=== PATIENT | female | born 1990 | race Caucasian/White ===

== ENCOUNTER 2021-01-31 06:21 | Inpatient (IN) | payer MEDICAID ==
[2021-01-31] VITALS (71 sets, daily range): BP systolic 90–144; BP diastolic 49–89
[~2021-01-31] VITALS: Ht 162.6 cm; Wt 92.2 kg
--- NOTE | 2021-01-31 06:30 | History & Physical-OB ---
OB - Chief Complaint & HPI Date/Time Date of Admission: Date of Admission: Jan 31, 2021 at 06:21 Date seen by a Provider: Jan 31, 2021 Time Seen by a Provider: 06:35 Chief Complaint/History OB-Reason for Admission/Chief: Induction of Labor Hx : 2 Hx Para: 1 Expected Date of Delivery: Jan 25, 2021 Gestational Age in Weeks: 40 Gestational Age in Days: 6 Indication for induction: post dates Admission Nurse Assessment Rev: Yes History of Labs GBS negative Allergies and Home Medications Patient Home Medication List Home Medication List Reviewed: Yes OB - History Hx of Present Care: Yes Ultrasounds: Normal mid trimester US Obstetrical Complications: None Medical Complications: None Patient Past Medical History no chronic medical problems OB - Admission Exam Physical Exam HEENT: Moist Membranes Heart: Rhythm Normal Lungs: Clear Abdomen: Gravid Extremities: Normal Cervical Dilatation: 1cm Effacement: 50% Station: -3 Membranes: Intact Heart Rate: 140's Intensity: Mild Titus Scoring Tool (Modified) Dilation (cm): 1-2cm (1) Effacement (%): 51-79% (2) Descent/Station: -3 (0) Cervix Consistency: Medium(1) Cervix Position: Posterior (0) Add 1 point for: Each previous vaginal delivery (1) Titus Score: 5 OB - Assessment/Plan/Diagnosis Assessment Assessment: induction of labor Admission Dx IUP at 40w6d gestation Admission Status: Inpatient Order (span 2 midnights) Reason for Inpatient Admission: induction of labor Plan Plan: Induction Induction Method: BERENICE VARELA MD Jan 31, 2021 06:30
[2021-01-31] MEDS ORDERED: D5 LR IV SOLUTION 1,000 ML IV ONE (06:41)
[2021-01-31] MEDS ORDERED: OXYTOCIN PRE-MIX DRIP 500 ML IV SCH ×2 (06:45→21:30)
[2021-01-31 07:05] LABS: BASOPHILS % (AUTO) 0 % (0-10); EOSINOPHILS # (AUTO) 0.1 10^3/uL (0.0-0.3); EOSINOPHILS % (AUTO) 1 % (0-10); HEMATOCRIT 32 % (35-52); HEMOGLOBIN 9.7 g/dL (11.5-16.0); LYMPHOCYTES # (AUTO) 2.3 10^3/uL (1.0-4.0); LYMPHOCYTES % (AUTO) 28 % (12-44); MEAN CORPUSCULAR HEMOGLOBIN 25 pg (25-34); MEAN CORPUSCULAR HGB CONC 31 g/dL (32-36); MEAN CORPUSCULAR VOLUME 80 fL (80-99); MONOCYTES # (AUTO) 0.6 10^3/uL (0.0-1.0); MONOCYTES % (AUTO) 7 % (0-12); NEUTROPHILS # (AUTO) 5.4 10^3/uL (1.8-7.8); NEUTROPHILS % (AUTO) 64 % (42-75); PLATELET COUNT 213 10^3/uL (130-400); WHITE BLOOD COUNT 8.4 10^3/uL (4.3-11.0)
[2021-01-31] MEDS ORDERED: BUTORPHANOL INJ 2 MG/ML (STADOL) VIAL IV PRN (07:15)
[2021-01-31] MEDS ORDERED: PNV11TAB5 PO (07:46)
[2021-01-31] MEDS: D5 LR IV SOLUTION 1,000 ML IV SCH ×2 (07:58→14:40)
[2021-01-31] MEDS ORDERED: fentaNYL 2 mcg/ml BUPIVA 0.125 100 ML ONE (08:06)
[2021-01-31] MEDS ORDERED: BUPIVACAINE 0.25% 30 ML (SENSORCAINE) VIAL ONE (08:32)
[2021-01-31] MEDS ORDERED: fentaNYL INJ 100 MCG/2 ML AMP ONE (08:32)
[2021-01-31] MEDS ORDERED: ONDANSETRON 4 MG/2 ML (SDV) Z0FRAN IV PRN (09:15)
[2021-01-31] MEDS ORDERED: fentaNYL INJ 100 MCG/2 ML AMP INJ ONE (09:15)
[2021-01-31] MEDS ORDERED: NALOXONE 0.4 MG/ML 1 ML (NARCAN) VIAL IV PRN (09:15)
[2021-01-31] MEDS ORDERED: LACTATED RINGERS 1,000 ML IV ONE ×2 (09:15)
[2021-01-31] MEDS: EPIDURAL (fentaNYL 2 MCG/ML BUPIVA 0.125%)100 ML BAG EPI PRN ×2 (13:38→16:56)
[2021-01-31] MEDS ORDERED: CATHETER FLUSH 10 ML SYR IV SCH ×2 (14:00→22:00)
--- NOTE | 2021-01-31 17:22 | Progress Note ---
Subjective Subjective/Events-last exam Resting comfortable with epidural in place. Pitocin at 28 uU/min. Objective Exam Last Set of Vital Signs Vital Signs Date Time Temp Pulse Resp B/P (MAP) Pulse Ox O2 Delivery O2 Flow Rate FiO2 01/31/21 16:45 36.3 66 18 105/59 (74) 01/31/21 08:50 99 01/31/21 07:35 Room Air Capillary Refill : Less Than 3 Seconds Other physical findings cervix at 5 cm dilated and 80 % effaced. Station high but not ballotable. Results/Procedures Lab Laboratory Tests 01/31/21 06:45: White Blood Count 8.4, Red Blood Count 3.96, Hemoglobin 9.7L, Hematocrit 32L, Mean Corpuscular Volume 80, Mean Corpuscular Hemoglobin 25, Mean Corpuscular Hemoglobin Concent 31L, Red Cell Distribution Width 18.3H, Platelet Count 213, Mean Platelet Volume 10.0, Immature Granulocyte % (Auto) 1, Neutrophils (%) (Auto) 64, Lymphocytes (%) (Auto) 28, Monocytes (%) (Auto) 7, Eosinophils (%) (A uto) 1, Basophils (%) (Auto) 0, Neutrophils # (Auto) 5.4, Lymphocytes # (Auto) 2.3, Monocytes # (Auto) 0.6, Eosinophils # (Auto) 0.1, Basophils # (Auto) 0.0, Immature Granulocyte # (Auto) 0.1 Assessment/Plan Assessment/Plan Admission Status: Inpatient Order (span 2 midnights) Assessment & Plan 1. IUP at 40w6d in labor -continue with labor -increase pit provided tolerated. BERENICE GARZA MD Jan 31, 2021 17:22
[2021-01-31] MEDS ORDERED: MEPIVACAINE (CARBOCAINE) 2% 50 ML VIAL ONE (20:13)
--- NOTE | 2021-01-31 21:17 | OB Labor & Delivery Record ---
L&D History Date of Service Date of Service: Jan 31, 2021 History Expected Date of Delivery: Jan 25, 2021 Gestational Age in Weeks: 40 Hx : 2 Hx Para: 2 Complications Events: Routine care Operative Indications (Cesarea: N/A-Vaginal Delivery Intrapartal Events: None L&D Stage1 Stage One Onset of Labor - Date: Jan 31, 2021 Onset of Labor - Time: 06:55 Monitors and Tracing Monitor Mode: Internal Heart Rate: 145 Monitor Accelerations: Uniform Monitor Decelerations: None Station: 0 Jr. Java Developer Variability: Average (6-10) Short Term Variability: Present Presentation: Vertex Vital Signs VS - Last 72 Hours, by Label 01/31/21 01/31/21 01/31/21 01/31/21 07:35 08:00 08:15 08:30 Temp 36.0 36.0 Pulse 81 81 82 77 Resp 18 18 18 18 B/P (MAP) 120/80 (93) 113/59 (77) 119/64 (82) Pulse Ox 98 O2 Delivery Room Air 01/31/21 01/31/21 01/31/21 01/31/21 08:44 08:45 08:47 08:50 Pulse 107 93 94 93 Resp 18 18 18 18 B/P (MAP) 131/68 (89) 133/71 (91) 123/64 (83) 121/89 (100) Pulse Ox 99 99 99 01/31/21 01/31/21 01/31/21 01/31/21 08:53 08:56 09:00 09:02 Pulse 113 90 103 91 Resp 18 18 18 18 B/P (MAP) 117/69 (85) 122/73 (89) 121/74 (90) 117/74 (88) 01/31/21 01/31/21 01/31/21 01/31/21 09:06 09:09 09:13 09:15 Pulse 86 97 92 68 Resp 18 18 18 18 B/P (MAP) 114/62 (79) 117/70 (86) 128/70 (89) 120/67 (84) 01/31/21 01/31/21 01/31/21 01/31/21 09:18 09:21 09:30 09:45 Pulse 81 85 78 80 Resp 18 18 18 18 B/P (MAP) 116/65 (82) 115/65 (82) 136/59 (84) 113/58 (76) 01/31/21 01/31/21 01/31/21 01/31/21 10:00 10:15 10:30 10:45 Temp 36.0 Pulse 102 80 80 91 Resp 18 18 18 18 B/P (MAP) 107/68 (81) 127/67 (87) 114/61 (78) 117/65 (82) 01/31/21 01/31/21 01/31/21 01/31/21 11:00 11:15 11:30 11:45 Pulse 79 98 93 85 Resp 18 18 18 18 B/P (MAP) 116/69 (85) 122/74 (90) 115/68 (84) 119/71 (87) 01/31/21 01/31/21 01/31/21 01/31/21 12:00 12:15 12:30 12:45 Temp 36.2 Pulse 99 75 63 67 Resp 18 18 18 18 B/P (MAP) 119/70 (86) 111/53 (72) 107/53 (71) 107/53 (71) 01/31/21 01/31/21 01/31/21 01/31/21 13:00 13:15 13:30 13:45 Temp 36.5 36.1 Pulse 68 104 72 81 Resp 18 18 18 18 B/P (MAP) 101/54 (70) 100/55 (70) 103/56 (72) 130/58 (82) 01/31/21 01/31/21 01/31/21 01/31/21 14:00 14:15 14:30 14:45 Pulse 73 Resp 18 18 18 18 B/P (MAP) 125/61 (82) 01/31/21 01/31/21 01/31/21 01/31/21 15:00 15:15 15:30 15:45 Temp 36.1 Pulse 70 85 95 76 Resp 18 18 18 18 B/P (MAP) 106/58 (74) 112/59 (76) 112/67 (82) 106/58 (74) 01/31/21 01/31/21 01/31/21 01/31/21 16:00 16:15 16:30 16:45 Temp 36.3 Pulse 74 78 71 66 Resp 18 18 18 18 B/P (MAP) 107/56 (73) 100/49 (66) 106/59 (75) 105/59 (74) 01/31/21 01/31/21 01/31/21 01/31/21 17:00 17:15 17:30 17:45 Temp 36.2 Pulse 84 93 83 77 Resp 18 18 18 18 B/P (MAP) 133/79 (97) 144/67 (92) 112/59 (76) 116/59 (78) 01/31/21 01/31/21 01/31/21 01/31/21 18:00 18:15 18:30 18:45 Temp 36.3 Pulse 85 83 85 85 Resp 18 18 18 18 B/P (MAP) 116/56 (76) 132/71 (91) 108/64 (79) 129/66 (87) 01/31/21 01/31/21 01/31/21 01/31/21 19:00 19:15 19:30 19:45 Temp 36.6 Pulse 80 102 86 87 Resp 18 18 18 18 B/P (MAP) 119/58 (78) 137/64 (88) 125/66 (85) 126/66 (86) O2 Delivery Room Air Signs of Distress by FHT Signs of Distress no Rupture of Membranes Spontaneous Ruture of Membrane: No Amniotic Membrane Rupture Time: 0655 Amniotic Membrane Fluid Desc.: Clear (initially, but at thick meconium) Vaginal Bleeding Description: None Induction/Anesthesia Epidural Cath Placement - Time: 0849 L&D Stage2 Stage Two Stage II Date: Jan 31, 2021 Stage II Time: 20:48 Monitors and Tracing Monitor Mode: Internal Heart Rate: 145 Monitor Accelerations: Uniform Monitor Decelerations: Variable Jail Variability: Average (6-10) Short Term Variability: Present Position: Left Occiput Anterior Presentation: Vertex Signs of Distress by FHT Signs of Distress no Cord Descript/Complications Cord Vessel Description: 3 Vessels Delivery Type Infant Delivery Method: Spontaneous Vaginal Anterior Shoulder: Left Episiotomy/Perineal Laceration Laceraction(s)/Extensions: No Episiotomy Description: Perineal Extension/lac, 1st degree Sutures Used: Vicryl Condition of Infant Delivery 1 minute Comment: 2 5 minute Comment: 8 Notes initially with poor of 2 at 1 minute. With cleaning of the nasopharyngeal region of meconium respiratory effort improved as well as heart rate and her overall grimace and muscle tone. Condition of Condition of : Living Exam: Meconium Staining Resuscitation Resuscitation: Bag and Mask L&D Stage3 Stage Three Stage III Date: Jan 31, 2021 Stage III Time: 20:53 Pictocin Pitocin Administration mu/min: 30 Pitocin ml/hr: 30 Pitocin Administration Comment: 1710 pit increased Placenta Delivery Placenta Delivery: Spontaneous Delivery Summary Summary Estimated blood loss (mL): 300 Condition of Delivery Examined: Cervix Examined Post Hemorrhage: No Intervention Required none BERENICE GARZA MD Jan 31, 2021 21:17
[2021-01-31] MEDS ORDERED: BENZOCAINE/MENTHOL (DERMOPLAST) 56 ML CAN TP PRN (21:30)
[2021-01-31] MEDS ORDERED: MEASLES,MUMPS,RUBELLA 1 EA INJ SQ ONE (21:30)
[2021-01-31] MEDS ORDERED: WITCH HAZEL(TUCKS) 40 EA JAR TOP PRN (21:30)
[2021-01-31] MEDS ORDERED: TETANUS,DIPTH,PERTUSS P/F (BOOSTRIX) 0.5 ML VIAL IM ONE (21:30)
[2021-01-31] MEDS: ACETAMINOPHEN 500 MG TAB (TYLENOL) PO SCH (23:29)
[2021-01-31] MEDS: IBUPROFEN 600 MG (MOTRIN) TAB PO SCH (23:29)
[2021-02-01 04:30] VITALS: BP 111/65
[2021-02-01] MEDS: IBUPROFEN 600 MG (MOTRIN) TAB PO SCH ×2 (05:02→20:01)
[2021-02-01] MEDS: ACETAMINOPHEN 500 MG TAB (TYLENOL) PO SCH ×2 (05:02→12:48)
[2021-02-01 05:33] LABS: BASOPHILS % (AUTO) 0 % (0-10); EOSINOPHILS % (AUTO) 0 % (0-10); HEMATOCRIT 24 % (35-52); LYMPHOCYTES # (AUTO) 2.3 10^3/uL (1.0-4.0); LYMPHOCYTES % (AUTO) 17 % (12-44); MEAN CORPUSCULAR HEMOGLOBIN 24 pg (25-34); MEAN CORPUSCULAR HGB CONC 29 g/dL (32-36); MEAN CORPUSCULAR VOLUME 83 fL (80-99); MEAN PLATELET VOLUME 10.4 fL (9.0-12.2); MONOCYTES # (AUTO) 0.9 10^3/uL (0.0-1.0); MONOCYTES % (AUTO) 7 % (0-12); NEUTROPHILS # (AUTO) 10.1 10^3/uL (1.8-7.8); NEUTROPHILS % (AUTO) 75 % (42-75); PLATELET COUNT 155 10^3/uL (130-400); WHITE BLOOD COUNT 13.4 10^3/uL (4.3-11.0)
--- NOTE | 2021-02-01 06:42 | Anesthesia-Regional Post-Op ---
Regional Patient Condition Mental Status: Alert, Oriented x3 Circulation: Same as Pre-Op Headache: Absent Sensation: Full Recovery Motor Block: Absent Post Op Complications Complications None Follow Up Care/Instructions Patient Instructions None needed. Anesthesia/Patient Condition Patient is doing well, no complaints, stable vital signs, no apparent adverse anesthesia problems. No complications reported per nursing. [place] [facility] [place] Yes PRIYA WADE CRNA Feb 01, 2021 06:42
--- NOTE | 2021-02-01 07:03 | Progress Note ---
Subjective Subjective/Events-last exam No complaints. Vaginal bleed minimal. Objective Exam Last Set of Vital Signs Vital Signs Date Time Temp Pulse Resp B/P (MAP) Pulse Ox O2 Delivery O2 Flow Rate FiO2 02/01/21 04:30 36.3 75 18 111/65 (80) Room Air 01/31/21 08:50 99 Capillary Refill : Less Than 3 Seconds I&O Intake and Output 02/01/21 00:00 Intake Total 3000 ml Balance 3000 ml Intake IV Total 3000 ml General: No Acute Distress Lungs: Clear to Auscultation Abdomen: Soft (with uterus firm) Results/Procedures Lab Laboratory Tests 02/01/21 05:15: White Blood Count 13.4H, Red Blood Count 2.88L, Hemoglobin 7.0L, Hematocrit 24L, Mean Corpuscular Volume 83, Mean Corpuscular Hemoglobin 24L, Mean Corpuscular Hemoglobin Concent 29L, Red Cell Distribution Width 18.5H, Platelet Count 155, Mean Platelet Volume 10.4, Immature Granulocyte % (Auto) 1, Neutrophils (%) (Auto) 75, Lymphocytes (%) (Auto) 17, Monocytes (%) (Auto) 7, Eosinophils (%) (Auto) 0, Basophils (%) (Auto) 0, Neutrophils # (Auto) 10.1H, Lymphocytes # (Auto) 2.3, Monocytes # (Auto) 0.9, Eosinophils # (Auto) 0.0, Basophils # (Auto) 0.0, Immature Granulocyte # (Auto) 0.1 Assessment/Plan Assessment/Plan Admission Status: Inpatient Order (span 2 midnights) Assessment & Plan 1. IUP at 40w6d in labor -continue with labor -increase pit provided tolerated. 02/01 -routine PP care orders 2. Anemia -add iron to regimen BERENICE GARZA MD Feb 01, 2021 07:03
[2021-02-01 08:30] VITALS: BP 116/71
[2021-02-01] MEDS: DOCUSATE SODIUM 100 MG (COLACE) CAP PO SCH ×2 (12:48→20:01)
[2021-02-01] MEDS: FERROUS SULF 325 MG (IRON) TAB PO SCH (12:48)
[2021-02-01 17:00] VITALS: BP 113/68
[2021-02-01 20:20] VITALS: BP 124/72
[2021-02-02 02:03] VITALS: BP 122/72
[2021-02-02] MEDS: IBUPROFEN 600 MG (MOTRIN) TAB PO SCH ×2 (02:03→08:51)
[2021-02-02 08:45] VITALS: BP 124/71
[2021-02-02] MEDS: DOCUSATE SODIUM 100 MG (COLACE) CAP PO SCH (08:51)
[2021-02-02] MEDS: FERROUS SULF 325 MG (IRON) TAB PO SCH (08:51)
[2021-02-02] MEDS ORDERED: FERR325T24 PO (08:52)
[2021-02-02] MEDS ORDERED: IBUP-844 PO (08:52)
--- NOTE | 2021-02-02 08:56 | Short Stay Summary ---
Discharge Summary Hospital Course Problems/Dx: (1) Status post vaginal delivery Assessment & Plan: s/p at 40w6d -routine care (2) Anemia affecting Status: Chronic Assessment & Plan: pre-delivery Hb 9.7, post-delivery 7.0 - asymptomatic - continue iron and PNV for the next month Final Diagnosis: see Problem List Hospital Course Date of Admission: Jan 31, 2021 at 06:21 Date of Discharge: 02/02/21 Labs and Pending Lab Test: Laboratory Tests 01/31/21 06:45: White Blood Count 8.4, Red Blood Count 3.96, Hemoglobin 9.7L, Hematocrit 32L, Mean Corpuscular Volume 80, Mean Corpuscular Hemoglobin 25, Mean Corpuscular Hemoglobin Concent 31L, Red Cell Distribution Width 18.3H, Platelet Count 213, Mean Platelet Volume 10.0, Immature Granulocyte % (Auto) 1, Neutrophils (%) (Auto) 64, Lymphocytes (%) (Auto) 28, Monocytes (%) (Auto) 7, Eosinophils (%) (Auto) 1, Basophils (%) (Auto) 0, Neutrophils # (Auto) 5.4, Lymphocytes # (Auto) 2.3, Monocytes # (Auto) 0.6, Eosinophils # (Auto) 0.1, Basophils # (Auto) 0.0, Immature Granulocyte # (Auto) 0.1 02/01/21 05:15: White Blood Count 13.4H, Red Blood Count 2.88L, Hemoglobin 7.0L, Hematocrit 24L, Mean Corpuscular Volume 83, Mean Corpuscular Hemoglobin 24L, Mean Corpuscular Hemoglobin Concent 29L, Red Cell Distribution Width 18.5H, Platelet Count 155, Mean Platelet Volume 10.4, Immature Granulocyte % (Auto) 1, Neutrophils (%) (Aut o) 75, Lymphocytes (%) (Auto) 17, Monocytes (%) (Auto) 7, Eosinophils (%) (Auto) 0, Basophils (%) (Auto) 0, Neutrophils # (Auto) 10.1H, Lymphocytes # (Auto) 2.3, Monocytes # (Auto) 0.9, Eosinophils # (Auto) 0.0, Basophils # (Auto) 0.0, Immature Granulocyte # (Auto) 0.1 Home Meds Active Reported Gummies (Btl901/FA/Omega3/Dha/Fish Oil) 1 Each Tab.chew 1 Each PO DAILY Prescription sent to [facility] ([facility] [place]) for Ferrous Sulfate 325mg daily Assessment/Pt Instructions Follow up [facility] [place] 6 [place]. Discharge Instructions Discharge Diet: No Restrictions Discharge Physical Examination General Appearance: Alert, Oriented X3, Cooperative Psych/Mental Status: Mood NL Allergies: Coded Allergies: No Known Drug Allergies (Unverified , 01/31/21) Discharge Summary Date of Admission Jan 31, 2021 at 06:21 Date of Discharge JOHN RAMIREZ DO February 02, 2021 08:56
--- NOTE | 2021-02-04 04:44 | Physician Query Clarification ---
PQ-Further Specificity Admission/Discharge Admission Date: Jan 31, 2021 at 06:21 Discharge Date: February 02, 2021 at 11:55 BERENICE Butler MD The medical record reflects the following clinical scenario: History/Risk Factors:30 y/o female with 40.6 gestational age admitted for induction of labor, underwent delivered via spontaneous vaginal delivery, anemia was documented in post progress notes. Clinical Findings: hgb: 9.7 L -7.0 L, hct: 32 L-24 L. Treatment: Ferrous sulphate Question: Can you further specify Anemia per the clinical indicators above? Please document a response in the Progress Notes or Discharge Summary. 1. Acute blood loss anemia 2. Iron deficiency anemia 3. Other, with explanation of the clinical findings. 4. Clinically undetermined, no explanation for the clinical findings. PHYSICIAN RESPONSE Can you specify per above: Other, explanation/clinical finding (iron def with blood loss at delivery) Please remember a lack of response to the above will prompt a phone page by CDI/Coding staff. In responding to this query, please exercise your independent professional judgment. The purpose of this communication is to more accurately reflect the complexity of your patients condition. The fact that a question is asked does not imply that any particular answer is desired or expected. Thank you for your timely response to this clarification. Requestors name: [ ] Phone # [ ] THIS PHYSICIAN QUERY FORM IS A PERMANENT PART OF THE MEDICAL RECORD SHAHZAD RAGLAND February 04, 2021 04:44 BERENICE GARZA MD February 04, 2021 06:52
== END 2021-02-02 11:55 | disposition home or self-care (01) | DRG 807 ==
LOC: LDRP 06:21
PROVIDERS: ADMIT Family Medicine; ATTEND Family Medicine
PROC: 10E0XZZ Delivery of Products of Conception, External Approach (ICD-10-PCS; principal; 2021-01-31)
PROC: 10907ZC Drainage of Amniotic Fluid, Therapeutic from Products of Conception, Via Natural or Artificial Opening (ICD-10-PCS; 2021-01-31)
PROC: 0HQ9XZZ Repair Perineum Skin, External Approach (ICD-10-PCS; 2021-01-31)
DX: O48.0 Post-term pregnancy (principal); Z37.0 Single live birth; Z3A.40 40 weeks gestation of pregnancy; O70.0 First degree perineal laceration during delivery; O90.81 Anemia of the puerperium; D50.0 Iron deficiency anemia secondary to blood loss (chronic)
CPT/HCPCS: 36415; 85025; 86850; 86900; 86901